=== PATIENT | male | born 1990 | race Caucasian/White ===

== ENCOUNTER → 2016-11-21 | Day surgery (SDC) | payer OTHER ==
[~2016-11-21] VITALS: Ht 175.3 cm; Wt 86.9 kg
[~2016-11-21] MED LIST: ATIVAN 0.5MG0.5 MG PO; PERCOCET 5-3251 EACH PO; PROTONIX40 MG PO
--- NOTE | ~2016-11-21 | OR ---
PATIENT'S NAME: TR STRATTON [facility] AGE: 26 Y [address] ROOM: [place] [id number] LOC[place] [facility] [place] DATE: 11/21/2016 OR/Procedure Report DISCHARGE DATE: FAMILY PHYSICIAN: GAYLA MALIK MD ATTENDING PHYSICIAN: Gigi Rodriguez SURGEON: Gigi Rodriguez MD MATERIALS ENGINEER: Tiffany Goncalves PA-C. DATE OF PROCEDURE: 11/21/2016 PREOPERATIVE DIAGNOSIS: Biliary dyskinesia. POSTOPERATIVE DIAGNOSES: 1. Biliary dyskinesia. 2. Chronic cholecystitis. PROCEDURE PERFORMED: Robotic cholecystectomy. ANESTHESIA: General endotracheal. ESTIMATED BLOOD LOSS: Minimal. REASON FOR PROCEDURE: The patient is a 26-year-old male, who has had a lot of GI issues including some wheat intolerance. He was also found to have a low ejection fraction on a recent HIDA scan. We discussed the risks and benefits of surgery versus ongoing observation. The patient elected to proceed with cholecystectomy. FINDINGS: The patient had a somewhat enlarged gallbladder. The cystic duct was normal in size. There did appear to be some mild chronic wall thickening. Procedure was otherwise uneventful. PROCEDURE IN DETAIL: The patient was taken to the operating suite and placed in the supine position. After general endotracheal anesthesia was obtained, the abdomen was prepped with ChloraPrep and sterilely draped. Marcaine was infiltrated into the incision sites. A 1 cm infraumbilical incision was made. The fascia was grasped and elevated and a Veress needle was used to obtain a pneumoperitoneum. An 8 mm robotic trocar was then passed across the abdominal wall. Next, three further 8 mm robotic trocars were all placed under direct visualization. The robot was docked to the trocars. The camera was then advanced through the central trocar and the system was centered on the gallbladder. The fundus of the gallbladder was then grasped and elevated. The patient had very long tortuous gallbladder with fold to it, getting clear down to the neck area was somewhat of a challenge. There was some wall thickening and fatty infiltration. We were able to expose the cystic artery and then clipped this proximally before dividing it with cautery. We then PATIENT'S NAME: TR STRATTON [facility] AGE: 26 Y [address] ROOM: [place], [place] [address] LOCATION: [facility] [place] DATE: 11/21/2016 OR/Procedure Report DISCHARGE DATE: FAMILY PHYSICIAN: GAYLA MALIK MD ATTENDING PHYSICIAN: Gigi Rodriguez dissected free all the fibrous and fatty tissue on the wall of the neck area and were able to skeletonize the cystic duct up to the gallbladder. This was then stapled with Endo-clips proximally and distally and divided with a hook cautery. The gallbladder was then mobilized free of the liver bed. Once fully mobilized, the gallbladder was placed up over the liver. The instruments were all withdrawn and the robot was undocked. We then grasped the gallbladder and carefully withdrew it through the umbilicus. There was no evidence of bleeding or bile leak. The trocars were withdrawn and the pneumoperitoneum was evacuated. The fascia at the umbilicus was closed with a Vicryl suture. Skin incisions were all closed with subcuticular Monocryl. Benzoin, Steri-Strips, and gauze dressings were applied. POSTPROCEDURE PLAN: The patient will be sent to recovery and if doing okay, we will plan on discharging him home. He can gradually advance the diet as tolerated. He was given a prescription for Percocet for pain control. We will see him in the office in 2 weeks for recheck. MD TIMOTEO FAY/tejasl /[id number] d: 11/21/16 2131 t: 11/25/16 0902, OPERATIVE SUMMARY
== END | disposition disaster alternative care site (69) ==
LOC: GPOC 11-17 11:00 → GSDC 10:29
PROC: 0FT44ZZ Resection of Gallbladder, Percutaneous Endoscopic Approach (ICD-10-PCS; principal; 2016-11-21)
PROC: 8E0W4CZ Robotic Assisted Procedure of Trunk Region, Percutaneous Endoscopic Approach (ICD-10-PCS; 2016-11-21)
DX: K81.1 Chronic cholecystitis (principal); K82.8 Other specified diseases of gallbladder; K21.9 Gastro-esophageal reflux disease without esophagitis; R00.2 Palpitations; Z86.59 Personal history of other mental and behavioral disorders; Z88.8 Allergy status to other drugs, medicaments and biological substances; Z79.899 Other long term (current) drug therapy; Z98.890 Other specified postprocedural states
CPT/HCPCS: J0694; J1100; J2001; J2175; J2405; J3010; J7120

== ENCOUNTER 2016-12-05 13:13 | Emergency (ER) | payer OTHER ==
--- NOTE | ~2016-12-05 | ER ---
[facility] 26 [facility] [address] ROOM: [place] [address] LOCATION: ED ADMIT DATE: 12/05/2016 ER/Outpatient Report DISCHARGE DATE: FAMILY PHYSICIAN: Tramaine Pyle MD ATTENDING PHYSICIAN: Shirley cMkenna Time of Arrival: 1313 hours. Time of Evaluation: 1324 hours. IDENTIFICATION: A 26-year-old male. CHIEF COMPLAINT: Chest and back pain. HISTORY OF PRESENT ILLNESS: The patient had an episode around 9 o'clock today where he suddenly felt dizzy, lightheaded, and developed approximately a 20-minute episode of a tight heavy chest pain "over my whole chest and even on my right abdomen where my gallbladder used to be." The patient felt short of breath at that time. That self-resolved, and then this afternoon, he was in a meeting when a second episode happened, lasting also approximately 20 minutes. The patient denies any pain, shortness of breath at this time. No abdominal pain. He did have nausea with this. He has had no nausea or vomiting. He has had decreased appetite. He just has really been back to work and back getting in to things the last one week. ALLERGIES: PREDNISONE. CURRENT MEDICATIONS: Omeprazole. MEDICAL PROBLEMS: Biliary dyskinesia. PRIOR SURGERIES: Cholecystitis, status post robotic cholecystectomy, and tonsillectomy. SOCIAL HISTORY: The patient lives here in [place]. Works at [employer]. Tobacco use, denies. Alcohol use, denies. Drug use, denies. FAMILY HISTORY: Positive for diabetes and hypertension. He has a grandfather, who had blood [facility] 26 Y [address] ROOM: [place] [address] LOCATION: ED ADMIT DATE: 12/05/2016 ER/Outpatient Report DISCHARGE DATE: FAMILY PHYSICIAN: Tramaine Pyle MD ATTENDING PHYSICIAN: Shirley Mckenna clots to his lungs after surgery. REVIEW OF SYSTEMS: All systems reviewed and negative other than what is noted in the HPI. PHYSICAL EXAMINATION: VITAL SIGNS: Height 5 feet 9 inches, weight 89.4 kg, blood pressure 137/82, pulse 64, respirations 16, temperature 97.7, sats 96% on room air. GENERAL: A pleasant 26-year-old male, in no acute distress. HEENT: Head: Normocephalic, atraumatic. Ears: TMs translucent both ears. Nose: Mucosa pink, no lesions. Mouth: No lesions. Pharynx benign. NECK: Supple. No lymphadenopathy. LUNGS: Clear to auscultation. HEART: Regular rate and rhythm. No murmur, rub, or gallop. ABDOMEN: Bowel sounds present, soft, nondistended. He has some bruising noted from his cholecystectomy, but he has no tenderness, no erythema of incisions. EXTREMITIES: No edema. No calf tenderness. NEURO: The patient is alert and oriented x4. Cranial nerves 2 through 12 grossly intact. Motor strength 5/5 throughout. Sensation is intact to light touch. LABORATORY DATA AND X-RAYS: One-view chest x-ray, no acute process, pending Radiology over-read. EKG, normal sinus rhythm at 58 beats per minute. No acute ST elevation or depression. No change when compared to prior EKG dated 06/13/2016. Chemistry panel unremarkable. Magnesium, CPK, CK-MB normal. Troponin I less than 0.040. D-dimer 0.22. Hemoglobin 15.7, hematocrit 46.4, platelets 333, white count 7.9 with a normal differential. INR 1.0. IMPRESSION: Chest pain. No acute etiology identified. Currently asymptomatic. PLAN: Rest. No lifting. Follow up sooner if recurrent pain or problems. Follow up with Dr. Pyle or Dr. Rodriguez this week. Follow up sooner if any problems or concerns. The patient understands and agrees, and all questions have been answered. SHIRLEY MCKENNA MD CAR/modl PATIENT'S NAME: TR STRATTON [facility] AGE: 26 Y [address] ROOM: [place] [address] LOCATION: [facility] ADMIT DATE: 12/05/2016 ER/Outpatient Report DISCHARGE DATE: FAMILY PHYSICIAN: Tramaine Pyle MD ATTENDING PHYSICIAN: Shirley Mckenna /[id number] d: 12/05/16 2258 t: 12/06/16 1427, OUTPATIENT REPORT
[2016-12-05 13:52] LABS: BASOPHIL # 0.1 K/uL (0.0-0.2); EOSINOPHIL # 0.5 K/uL (0.0-0.5); EOSINOPHIL % 6.1 %; HEMATOCRIT 46.4 % (37.0-53.0); HEMOGLOBIN 15.7 g/dL (12.0-17.0); IMMATURE GRANULOCYTE % 0.3 %; LYMPHOCYTE # 2.5 K/uL (0.8-4.0); LYMPHOCYTE % 31.5 %; MCH 30.9 pg (27.0-34.0); MCHC 33.8 gm/dL (32.0-36.5); MCV 91.3 fl (83.0-98.0); MONOCYTE # 0.5 K/uL (0.0-1.0); MONOCYTE % 6.3 %; MPV 10.6 fl (9.4-12.4); NEUTROPHIL # (ANC) 4.3 K/uL (1.4-9.0); NEUTROPHIL % 54.8 %; NRBC % 0 /100WBC (0-0.00); PLATELET COUNT 333 K/uL (150-450); RBC 5.08 M/uL (4.00-6.00); RDW-CV 11.8 % (11.9-14.6); WBC 7.9 K/uL (4.0-11.0)
[2016-12-05 14:00] LABS: PTT 31 SECONDS (25-32)
[2016-12-05 14:10] LABS: ALBUMIN 4.3 gm/dL (3.5-5.0); ALK PHOS 87 IU/L (33-138); ALT 25 IU/L (12-78); ANION GAP 15.9 (10.0-19.0); AST 11 IU/L (10-40); BLOOD UREA NITROGEN 15 mg/dL (6-24); CALCIUM 9.1 mg/dL (8.5-10.5); CHLORIDE 104 mMol/L (96-110); CO2 24 mMol/L (22-32); CPK 43 IU/L (35-332); CREATININE 0.9 mg/dL (0.6-1.3); ESTIMATED GFR (MDRD EQUATION) > 60; POTASSIUM 3.9 mMol/L (3.7-5.1); SODIUM 140 mMol/L (135-145); TOTAL BILIRUBIN 0.5 mg/dL (0.0-1.5); TOTAL PROTEIN 7.7 g/dL (6.0-8.4)
== END 2016-12-05 15:22 | disposition disaster alternative care site (69) ==
LOC: GMED 13:13
PROVIDERS: Family Medicine
DX: R07.9 Chest pain, unspecified (principal); Z90.49 Acquired absence of other specified parts of digestive tract
CPT/HCPCS: J7040

== ENCOUNTER → 2017-03-02 | Outpatient (CLI) | payer OTHER | END | disposition disaster alternative care site (69) | LOC: GRAD 13:46 | DX: R10.31 Right lower quadrant pain (principal); Z90.49 Acquired absence of other specified parts of digestive tract | CPT/HCPCS: Q9967 ==